=== PATIENT | female | born 1955 | race Caucasian/White ===

== ENCOUNTER 2018-06-22 17:17 | Emergency (ER) | payer OTHER ==
[~2018-06-22] VITALS: Ht 167.6 cm; Wt 113.9 kg
[~2018-06-22 17:17] MED LIST: ARMOUR THYROID60 MG PO; JANUVIA100 MG PO; LOSARTAN POTASS25 MG PO; METFORMIN HCL500 MG PO; METOPROLOL TART50 MG PO
--- OUTSIDE RECORDS SUMMARY | 2018-06-22 17:20 | XMS REPORT | Continuity of Care Document ---
Author Author [facility] Organization Interface Address Unknown Phone Unavailable Problems Problem Status Onset Date Classification Date Reported Comments Source R92.8 - OTH ABN AND INCONCLUSIVE FINDI Active 12/20/2015 [facility] Medications Medication Details Route Status Patient Instructions Ordering Provider Order Date Source Allergies, Adverse Reactions, Alerts Substance Category Reaction Severity Reaction type Status Date Reported Comments Source Immunizations Immunization Date Given Site Status Last Updated Comments Source Results Order Name Results Value Reference Range Date Interpretation Comments Source Breast w/wo contrast bilat MRI Breast w/wo contrast bilat MRI - BREAST W/WO CONTRAST BILAT MRI BREAST MRI OF BOTH BREASTS : 01/02/2016 CLINICAL: Z80.3 Family History Of Malignant Neoplasm Of Breast HISTORY: 60 yo known BRCA negative female with history of LEFT breast wire- 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 The patient has the following family history of breast cancer: mother at 42, (g)grandmother, two great aunts, and maternal aunt at 60. She reports fluctuating left breast pain x two months. Comparison is made to exams dated: 12/22/2015 ultrasound, 12/22/2015 mammogram, 12/28/2014 localization, 12/07/2014 mammogram, 12/07/2014 stereotactic biopsy and 11/14/2014 mammogram - [facility]. INFORMED CONSENT: The procedure was explained to the patient including possible risks, benefits, complications and alternatives. The patient understood and desired to proceed. She took 10 mg of Valium, p.o., at 1235 hours, prior to the start of the breast MRI. 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 PRE GADOLINIUM CONTRAST INJECTION LABORATORY TESTING: Per ACR/ACS protocol for patients over the age of 60 prior to the injection of gadolinium contrast, the patient's creatinine and GFR were assessed with the I- STAT DEVICE. Creatinine measured 0.6 mg/dL and GFR 101. The patient's values fall within normal limits for age and weight. These values are considered within tolerance and safe for injection. TECHNIQUE: High resolution 1.4 mm RODEO plus, axial acquisitions were obtained of both breasts using an uberall 1.5 Suzanne dedicated breast MRI preceding and following the administration of cc's of Omniscan, subtraction, 2D and 3D maximum intensity projections (MIP), multiplanar reconstructions (MPR) and OTILIA Time Activity curves were performed on the Physician's Review Station with [employer] MRI FINDINGS: RIGHT BREAST FINDINGS: I do not identify any definite evidence of spiculated or linear beaded enhancement to suggest malignancy. The nipple-areolar complex appears to be unremarkable. The visualized lymph nodes appear architecturally preserved. The chest wall structures appear normal. No internal mammary adenopathy. LEFT BREAST FINDINGS: I do not identify any definite evidence of spiculated or linear beaded enhancement to suggest malignancy. The nipple-areolar complex appears to be unremarkable. The visualized lymph nodes appear architecturally preserved. The chest wall structures appear normal. No internal mammary adenopathy. IMPRESSION: BENIGN 1. THERE IS NO DEFINITE MRI EVIDENCE TO SUGGEST MALIGNANCY INVOLVING EITHER BREAST. 2. NO SUSPICIOUS ADENOPATHY. RECOMMENDATION: 1. PROVIDING HER CLINICAL AND SELF-EXAMINATIONS REMAIN STABLE AND THERE IS NO INTERVAL WORSENING OF HER SYMPTOMALOGY, A BILATERAL MAMMOGRAM AND BILATERAL ULTRASOUND IN November, IS RECOMMENDED. I telephonically discussed the findings and recommendations with the patient on 01/03/16. We also discussed conservative measures for management of breast pain such as caffeine abstinence, reducing salt intake, etc. I emphasized to her to return for repeat imaging if her pain should persist or worsen. Shayla Samson M.D. sg/:01/03/2016 17:10:57 Tool Worker: Re [facility] This exam was dictated and interpreted by [id number] for [facility]. letter sent: Bilateral Benign MRI BI-RADS: 2 Benign 01/02/2016 - - Read by: Shayla Samson MD Dictated Date/time: 01/03/16 17:10 Electronically Signed by: Shayla Samson MD 01/03/16 17:10 FINAL REPORT [facility] Breast Complete Janak US Breast Complete Janak US - BREAST COMPLETE JANAK US ULTRASOUND OF BOTH BREASTS: 12/22/2015 CLINICAL: HISTORY: 60 yo known BRCA negative female with increased risk. She reports history of off and on LEFT breast pain x 2 months. She underwent wire- localized LEFT excisional biopsy of ADH and papilloma 12/28/14. The patient has the following family history of breast cancer: mother at 42, great grandmother, two great aunts, and maternal aunt at 60. No HRT. Comparison is made to exams dated: 12/28/2014 localization, 12/07/2014 mammogram, 12/07/2014 stereotactic biopsy, 11/14/2014 mammogram, 11/14/2014 ultrasound and 07/23/2011 mammogram - [facility]. Real-time ultrasound of both breasts was performed. RIGHT BREAST FINDINGS: The entire right breast was evaluated including all four quadrants, axillary tail, subareolar region and axilla. No abnormalities that would be suspicious for malignancy were identified. A stable subcentimeter cyst was identified at 3:30. No axillary adenopathy. LEFT BREAST AND AXILLA FINDINGS: The entire left breast was evaluated including all four quadrants, axillary tail, subareolar region and axilla. No abnormalities that would be suspicious for malignancy were identified. No axillary adenopathy. IMPRESSION: INCOMPLETE: NEEDS ADDITIONAL IMAGING EVALUATION - FOLLOW-UP RECOMMENDED 1. THERE IS NO DEFINITE RADIOGRAPHIC OR SONOGRAPHIC EVIDENCE TO SUGGEST MALIGNANCY IN EITHER BREAST AND NO SIGNIFICANT CHANGE. RECOMMENDATION: 1. PATIENT WOULD LIKE TO PURSUE FURTHER IMAGING EVALUATION OF HER LEFT BREAST PAIN WITH AN MRI DUE TO HER INCREASED RISK. SHE HAS BEEN TENTATIVELY SCHEDULED FOR 01/02/16 PENDING PHYSICIAN ORDERS AND INSURANCE AUTHORIZATION. I personally reviewed the imaging findings and recommendations with the patient. Shayla Samson M.D. sg/:12/25/2015 10:13:54 Tool Worker: Analy Bills, [facility] This exam was dictated and interpreted by [id number] for [facility]. Ultrasound BI-RADS: 0 Indeterminate 12/22/2015 - - Read by: Shayla Samson MD Dictated Date/time: 12/25/15 10:13 Electronically Signed by: Shayla Samson MD 12/25/15 10:13 FINAL REPORT [facility] Digital Mammo DX Janak MA Digital Mammo DX Janak MA - DIGITAL MAMMO DX JANAK MA BILATERAL DIGITAL DIAGNOSTIC MAMMOGRAM WITH CAD: 12/22/2015 CLINICAL: HISTORY: 60 yo known BRCA negative female with increased risk. She reports history of off and on LEFT breast pain x 2 months. She underwent wire- localized LEFT excisional biopsy of ADH and papilloma 12/28/14. The patient has the following family history of breast cancer: mother at 42, great grandmother, two great aunts, and maternal aunt at 60. No HRT. Current study was evaluated with a Computer Aided Detection (CAD) system. Comparison is made to exams dated: 12/28/2014 localization, 12/07/2014 mammogram, 12/07/2014 stereotactic biopsy, 11/14/2014 mammogram, 11/14/2014 ultrasound and 07/23/2011 mammogram - [facility]. There are scattered fibroglandular densities in both breasts. Mild left post surgical changes. Stable left low-density nodules. No significant masses, calcifications, or other findings are seen in either breast. IMPRESSION: BENIGN There is no mammographic evidence of malignancy. PLEASE SEE SAME DAY ULTRASOUND REPORT. Shayla Samson M.D. sg/:12/25/2015 10:13:54 Tool Worker: Analy Bills, [facility] This exam was dictated and interpreted by [id number] for [facility]. Mammogram BI-RADS: 2 Benign 12/22/2015 - - Read by: Shayla Samson MD Dictated Date/time: 12/25/15 10:13 Electronically Signed by: Shayla Samson MD 12/25/15 10:13 FINAL REPORT [facility] Vital Signs Vital Sign Value Date Comments Source Encounters Location Location Details Encounter Type Encounter Number Reason For Visit Attending Provider ADM Date DC Date Status Source [facility] [id number] Lyudmila Files 12/22/2015 12/23/2015 [facility] [id number] Lyudmila Files 01/02/2016 01/03/2016 [facility] Procedure Code Date Perfomer Comments Source
--- OUTSIDE RECORDS SUMMARY | 2018-06-22 17:20 | XMS REPORT | Summary of Care ---
Author Author [facility] Address Unknown Phone Unavailable Encounter HQ Billntr_roya(FIN) [id number] Date(s): 12/22/15 - 12/22/15 [facility] [address] [place] [phone] [place] [phone] Discharge Disposition: Home or Self Care Attending Physician: Lyudmila Cm MD Vital Signs No data available for this section Problem List No data available for this section Allergies, Adverse Reactions, Alerts No data available for this section Medications No data available for this section Results No data available for this section Immunizations No data available for this section Procedures No data available for this section Social History No data available for this section Assessment and Plan No data available for this section
--- OUTSIDE RECORDS SUMMARY | 2018-06-22 17:20 | XMS REPORT ---
Author Author [facility] Address Unknown Phone Unavailable Care Team Providers Care Systems Operator Name Role Phone PEMA WALLACE Unavailable Unavailable Fam BUCKLEY Unavailable Unavailable Problems This patient has no known problems. Allergies, Adverse Reactions, Alerts This patient has no known allergies or adverse reactions. Medications This patient has no known medications. Results Test Description Test Time Test Comments Text Results Atomic Results Result Comments UPPER GI W/AIR CONTR [place] [address] Patient Name: ABEL MORENO MR #: [id number] : 1955 Age/Sex: 62/F Req #: [id number] [facility] Physician: Ordered by: MADISON REYNA, PEMA Pereyra MD Report #: [id number] Location: DX Room/Bed: Procedure: [id number] DX/UPPER GI W/AIR CONTR Exam Date: 05/07/17 Exam Time: 0715 REPORT STATUS: Signed PROCEDURE: X-RAY UPPER GI SERIES WITH AIR CONTRAST TECHNIQUE: Multiple fluoroscopic spot images were acquired of the esophagus, stomach, and duodenum after the administration of effervescent crystals and thin and thick barium. Images were obtained in the upright and supine positions from multiple obliquities. COMPARISON: None. INDICATIONS: Chest pain. FINDINGS: ESOPHAGUS: Motility: Within normal limits. Mucosa: Unremarkable. Distensibility: Normal. GASTROESOPHAGEAL JUNCTION: No evidence of hiatal hernia. GASTROESOPHAGEAL REFLUX: None observed. STOMACH: Normally distensible and demonstrates normal contours and mucosal pattern. DUODENUM: Bulb and sweep are normal. Duodenal- jejunal junction is in the normal expected position. Two separate diverticuli are present in the duodenum. IMPRESSION: No acute radiographic abnormality. Duodenal diverticulum. Dictated by: Emilia Saravia M.D. on 05/07/2017 at 8:38 Electronically approved by: Emilia Saravia M.D. on 05/07/2017 at 8:38 Dictated By: EMILIA SARAVIA MD 7 Transcribed By: KACIE on 05/07/17837 COPY TO: PEMA WALLACE Stress Test - Treadmill ONLY [place] [address] Patient Name : ABEL MORENO MR #: [id number] : 1955 Age/Sex: 62/F Adm Physician : BERNARD BUCKLEY MD Admit Date : 04/27/17 Location : [facility] Room/Bed : [place] [address] REPORT: Cardiology Report DATE OF STUDY: April 29, 2017 LEXISCAN NUCLEAR STRESS TEST INDICATIONS: Angina. The patient was stressed using a 1-minute intravenous infusion of Lexiscan. Rest and stress Myoview imaging was obtained. Nuclear imaging at both rest and stress is normal. Normal contractility of the left ventricle is noted. CONCLUSIONS: 1. Normal Lexiscan nuclear stress without evidence of ischemia or infarction. 2. Left ventricular ejection fraction is 67%. Job#: [id number] EV Signature Date Dictated By: RUBIO HEWITT MD Transcribed By: LOLLY on 04/29/17 <Electronically signed by RUBIO HEWITT MD><<Signature on File>>04/30/17 1401 COPY TO: CHEST 2 VIEWS [place] [address] Patient Name: ABEL MORENO MR #: [id number] : 1955 Age/Sex: 62/F Req #: [id number] Adm Physician: Ordered by: YADIRA TILLEY MD Report #: [id number] Location: ER Room/Bed: Procedure: [id number] DX/CHEST 2 VIEWS Exam Date: 04/27/17 Exam Time: 1548 REPORT STATUS: Signed EXAMINATION: PA and lateral views of the chest. COMPARISON: None CLINICAL HISTORY: Chest pain DISCUSSION: Lines/tubes: None. Lungs: The lungs are well inflated and clear. There is no evidence of pneumonia or pulmonary edema. Pleura: There is no pleural effusion or pneumothorax. Heart and mediastinum: The cardiomediastinal silhouette is normal. Bones and soft tissues: No acute bony abnormalities. IMPRESSION: No acute cardiopulmonary abnormalities. Signed by: Dr. Jerrica Collins M.D. on 04/27/2017 4:02 PM Dictated By: JERRICA COLLINS MD 1602 Transcribed By: JUSTIN on 04/27/17 1602 COPY TO: YADIRA TILLEY MD
--- OUTSIDE RECORDS SUMMARY | 2018-06-22 17:20 | XMS REPORT | Summary of Care ---
Author Author [facility] - [facility] Address Unknown Phone Unavailable Encounter HQ Encntr_roya(FIN) [id number] Date(s): 01/02/16 - 01/02/16 [facility] [address] [place] [phone] [place] [phone] Discharge Disposition: Home or Self Care Attending [...]
--- NOTE | 2018-06-22 18:29 | Diagnostic Imaging Report ---
RIGHT HAND - 3 Images RIGHT WRIST - 3 Images HISTORY: Fall, injury COMPARISON: None available. FINDINGS: Bones: Diffusely decreased mineralization of the osseous structures limits bone detail. Two osseous darryn at the base of the first metacarpal bone. No acute displaced fracture. Joints: Polyarticular arthropathy, most notably severe of the distal interphalangeal joints with central erosions. Moderate degenerative changes of the triscaphe joint. The first carpometacarpal joint is fused. Soft tissues: The soft tissues appear unremarkable. IMPRESSION: 1. No acute displaced fracture. 2. Diffuse osseous demineralization. If pain persists, recommend repeat radiographs in 10-14 days. 3. Erosive osteoarthropathy. Signed by: Dr. Solo Landeros D.O., M.M.M. on 06/22/2018 6:26 PM
--- NOTE | 2018-06-22 18:55 | NUR ---
REPORT TO VALENTINA VASQUEZ
== END 2018-06-22 19:20 | disposition home or self-care (01) ==
LOC: FSED 17:17
DX: S60.211A Contusion of right wrist, initial encounter (principal); S60.221A Contusion of right hand, initial encounter; W01.0XXA Fall on same level from slipping, tripping and stumbling without subsequent striking against object, initial encounter; Y92.008 Other place in unspecified non-institutional (private) residence as the place of occurrence of the external cause
CPT/HCPCS: 99283

== ENCOUNTER → 2020-10-20 | Day surgery (SDC) | payer BC ==
[2020-10-17 13:18] LABS: BASOPHILS # (AUTO) 0.1 (0.0-0.1); BASOPHILS % 0.8 % (0.0-1.0); EOSINOPHILS # (AUTO) 0.1 (0.0-0.4); HEMATOCRIT 39.2 % (34.2-44.1); LYMPHOCYTES % 15.7 % (18.0-39.1); MEAN CORPUSCULAR HEMOGLOBIN 28.8 pg (28-32); MEAN CORPUSCULAR HGB CONC 33.2 g/dL (31-35); MEAN CORPUSCULAR VOLUME 86.9 fL (81-99); MONOCYTES # (AUTO) 0.5 (0.2-0.8); MONOCYTES % 7.2 % (4.4-11.3); NEUTROPHILS # (AUTO) 4.8 (2.1-6.9); NEUTROPHILS % 73.8 % (38.7-80.0); PLATELET COUNT 252 x10e3/uL (140-360); RED BLOOD COUNT 4.51 x10e6/uL (3.6-5.1); RED CELL DISTRIBUTION WIDTH 13.8 % (11.7-14.4)
[2020-10-17 13:38] LABS: ANION GAP 14.4 mmol/L (8-16); BLOOD UREA NITROGEN 17 mg/dL (7-26); BUN/CREATININE RATIO 23 (6-25); CALCIUM 9.7 mg/dL (8.4-10.2); CARBON DIOXIDE 25 mmol/L (22-29); CHLORIDE 105 mmol/L (98-107); CREATININE, SERUM 0.74 mg/dL (0.57-1.11); EST GLOMERULAR FILTRATION RATE > 60 ML/MIN (60-); GLUCOSE 130 mg/dL (74-118); POTASSIUM 4.4 mmol/L (3.5-5.1); SODIUM 140 mmol/L (136-145)
[~2020-10-20] MED LIST changes: +BENICAR20 MG PO; +BUPIVACAINE 0.25% 30ML SDV ONE; +DEXAMETHASONE SOD PHOS INJ 4 MG/ML VIAL ONE; +FENTANYL CITRATE/PF 100MCG/2 ML INJ ONE; +HYDRALAZINE HC100 MG PO; +HYDROCODONE/APAP 7.5MG-325MG 1 EA TAB ONE; +HYDROGEN PEROXIDE 120 ML BTL ONE; +LEXAPRO20 MG PO; +LIDOCAINE HCL 2% LOCAL INJ 5 ML SDV VIAL INJ ONE; +METOPROLOL SUCC50 MG PO; +MIDAZOLAM HCL 2 MG/2 ML VIAL ONE; +ONDANSETRON HCL INJ 2MG/ML 2ML 2 MG/ML VIAL ONE; +OZEMPIC0.25 MG/0. SC; +POVIDONE IODINE 0.05% 0.05 % ML PO ONE; +PROPOFOL IV EMULSION 10 MG/ML 20 ML VIAL ONE; +SEVOFLURANE INHAL SOLN 250 ML PEN BTL ONE
[2020-10-20 12:00] VITALS: BP 111/68
== END | disposition home or self-care (01) ==
LOC: OR 07:00
PROVIDERS: ATTEND Surgery
DX: L72.0 Epidermal cyst (principal); E11.9 Type 2 diabetes mellitus without complications; I10 Essential (primary) hypertension; E66.9 Obesity, unspecified; E03.9 Hypothyroidism, unspecified; M12.9 Arthropathy, unspecified; Z88.0 Allergy status to penicillin; Z88.2 Allergy status to sulfonamides; Z91.041 Radiographic dye allergy status; Z01.810 Encounter for preprocedural cardiovascular examination; Z01.812 Encounter for preprocedural laboratory examination; Z20.822 Contact with and (suspected) exposure to COVID-19; Z79.84 Long term (current) use of oral hypoglycemic drugs; Z68.35 Body mass index [BMI] 35.0-35.9, adult; Z80.3 Family history of malignant neoplasm of breast
CPT/HCPCS: 19120; 36415; 80048; 85025; 87071; 87205; 88304; 93005; J1100; J2001; J2250; J2405; J2704; J3010; U0002

== ENCOUNTER 2022-08-26 22:24 | Inpatient (IN) | payer BC, MEDICARE ==
[~2022-08-26] VITALS: Ht 165.1 cm; Wt 109.8 kg
[~2022-08-26 22:24] MED LIST changes: -BUPIVACAINE 0.25% 30ML SDV ONE; -DEXAMETHASONE SOD PHOS INJ 4 MG/ML VIAL ONE; -FENTANYL CITRATE/PF 100MCG/2 ML INJ ONE; -HYDROCODONE/APAP 7.5MG-325MG 1 EA TAB ONE; -HYDROGEN PEROXIDE 120 ML BTL ONE; -LIDOCAINE HCL 2% LOCAL INJ 5 ML SDV VIAL INJ ONE; -MIDAZOLAM HCL 2 MG/2 ML VIAL ONE; -ONDANSETRON HCL INJ 2MG/ML 2ML 2 MG/ML VIAL ONE; -POVIDONE IODINE 0.05% 0.05 % ML PO ONE; -PROPOFOL IV EMULSION 10 MG/ML 20 ML VIAL ONE; -SEVOFLURANE INHAL SOLN 250 ML PEN BTL ONE
[2022-08-26 23:17] LABS: BASOPHILS % 0.6 % (0.0-1.0); EOSINOPHILS # (AUTO) 0.1 (0.0-0.4); EOSINOPHILS % 1.2 % (0.0-6.0); HEMATOCRIT 39.7 % (34.2-44.1); LYMPHOCYTES # (AUTO) 0.6 (1.0-3.2); LYMPHOCYTES % 12.3 % (18.0-39.1); MEAN CORPUSCULAR HEMOGLOBIN 29.4 pg (28-32); MEAN CORPUSCULAR HGB CONC 32.7 g/dL (31-35); MEAN CORPUSCULAR VOLUME 89.8 fL (81-99); MONOCYTES # (AUTO) 0.4 (0.2-0.8); MONOCYTES % 7.3 % (4.4-11.3); NEUTROPHILS # (AUTO) 3.9 (2.1-6.9); PLATELET COUNT 217 x10e3/uL (140-360); RED BLOOD COUNT 4.42 x10e6/uL (3.6-5.1); RED CELL DISTRIBUTION WIDTH 13.6 % (11.7-14.4)
[2022-08-26 23:21] LABS: AMPHETAMINES SCREEN,URINE NEGATIVE (NEGATIVE); BENZODIAZEPINES SCREEN,URINE NEGATIVE (NEGATIVE); PHENCYCLIDINE SCREEN,URINE NEGATIVE (NEGATIVE)
[2022-08-26 23:42] LABS: ALANINE AMINOTRANSFERASE 38 IU/L (0-55); ALBUMIN 3.7 g/dL (3.5-5.0); ALBUMIN/GLOBULIN RATIO 1.1 (0.8-2.0); ALKALINE PHOSPHATASE 67 IU/L (40-150); BLOOD UREA NITROGEN 30 mg/dL (7-26); BUN/CREATININE RATIO 43 (6-25); CALCIUM 9.6 mg/dL (8.4-10.2); CARBON DIOXIDE 19 mmol/L (22-29); CHLORIDE 106 mmol/L (98-107); CREATINE KINASE 50 IU/L (29-168); GLUCOSE 162 mg/dL (74-118); SODIUM 137 mmol/L (136-145)
[2022-08-27] MEDS ORDERED: ONDANSETRON HCL INJ 2MG/ML 2ML 2 MG/ML VIAL IV PRN (00:15)
[2022-08-27] MEDS ORDERED: Morphine 4mg INJECTION 4 MG/ML INJ IV PRN (06:00)
[2022-08-27 07:05] LABS: CREATINE KINASE 49 IU/L (29-168)
[2022-08-27 08:21] VITALS: BP 128/72
[2022-08-27 08:30] VITALS: BP 128/72
[2022-08-27] MEDS: HYDRALAZINE HCL 100 MG TABLET PO SCH ×2 (09:00→16:47)
[2022-08-27] MEDS: ESCITALOPRAM OXALATE 10 MG TAB PO SCH (09:00)
[2022-08-27] MEDS: METOPROLOL SUCCINATE 50 MG TAB XL PO SCH (09:00)
[2022-08-27] MEDS: THYROID 60 MG TAB PO SCH (09:00)
[2022-08-27] MEDS ORDERED: DEXTROSE 50% SYRINGE 50 ML IV PRN (11:00)
[2022-08-27] MEDS: INSULIN REGULAR, HUMAN 100 UNIT/1 ML SQ SCH ×3 (11:30→21:00)
[2022-08-27 12:07] VITALS: BP 114/65
[2022-08-27] MEDS ORDERED: REGADENOSON 0.4 MG/5 ML SYR IV ONE (12:56)
[2022-08-27] MEDS: ACETAMINOPHEN 325 MG TAB PO PRN (16:18)
[2022-08-27 16:42] VITALS: BP 119/71
[2022-08-27 16:48] LABS: CREATINE KINASE 63 IU/L (29-168)
[2022-08-27 20:00] VITALS: BP 100/51
[2022-08-27] MEDS ORDERED: ATORVASTATIN 20 MG TAB PO SCH (21:00)
[2022-08-27] MEDS ORDERED: NEURONTIN300 MG PO (21:29)
[2022-08-28 00:34] VITALS: BP 105/60
[2022-08-28 01:14] VITALS: BP 105/60
[2022-08-28 05:57] LABS: BASOPHILS % 0.7 % (0.0-1.0); EOSINOPHILS # (AUTO) 0.1 (0.0-0.4); EOSINOPHILS % 1.8 % (0.0-6.0); HEMATOCRIT 39.7 % (34.2-44.1); HEMOGLOBIN 12.8 g/dL (12.0-16.0); LYMPHOCYTES % 18.2 % (18.0-39.1); MEAN CORPUSCULAR HEMOGLOBIN 29.5 pg (28-32); MEAN CORPUSCULAR HGB CONC 32.2 g/dL (31-35); MEAN CORPUSCULAR VOLUME 91.5 fL (81-99); MONOCYTES # (AUTO) 0.6 (0.2-0.8); MONOCYTES % 11.7 % (4.4-11.3); NEUTROPHILS # (AUTO) 3.7 (2.1-6.9); NEUTROPHILS % 67.2 % (38.7-80.0); PLATELET COUNT 234 x10e3/uL (140-360); RED BLOOD COUNT 4.34 x10e6/uL (3.6-5.1); RED CELL DISTRIBUTION WIDTH 13.8 % (11.7-14.4)
[2022-08-28 06:31] LABS: ALBUMIN 3.7 g/dL (3.5-5.0); ALBUMIN/GLOBULIN RATIO 1.2 (0.8-2.0); CALCIUM 9.1 mg/dL (8.4-10.2); CREATININE, SERUM 0.7 mg/dL (0.57-1.11)
[2022-08-28] MEDS: ACETAMINOPHEN 325 MG TAB PO PRN (06:57)
[2022-08-28] MEDS: INSULIN REGULAR, HUMAN 100 UNIT/1 ML SQ SCH ×2 (07:30→11:30)
[2022-08-28 08:40] VITALS: BP 121/68
[2022-08-28] MEDS: METOPROLOL SUCCINATE 50 MG TAB XL PO SCH (08:57)
[2022-08-28] MEDS: HYDRALAZINE HCL 100 MG TABLET PO SCH (08:57)
[2022-08-28] MEDS: THYROID 60 MG TAB PO SCH (08:57)
[2022-08-28] MEDS: ESCITALOPRAM OXALATE 10 MG TAB PO SCH (08:57)
[2022-08-28] MEDS ORDERED: ONDANSETRON HCL 4 MG ORAL DISINTEGRATING TAB PO PRN (12:15)
[2022-08-28 12:28] VITALS: BP 95/59
== END 2022-08-28 13:01 | disposition home or self-care (01) | DRG 313 ==
LOC: ER 22:31 → ERHOLD 08-27 00:14 → MED/SURG3 08-27 07:00 → OBSVTOIN 08-28 09:26
PROVIDERS: ADMIT Internal Medicine; ATTEND Internal Medicine
DX: R07.89 Other chest pain (principal); I10 Essential (primary) hypertension; E11.9 Type 2 diabetes mellitus without complications; Z79.85 Long-term (current) use of injectable non-insulin antidiabetic drugs; I34.1 Nonrheumatic mitral (valve) prolapse; H81.09 Meniere's disease, unspecified ear; E78.00 Pure hypercholesterolemia, unspecified; E03.9 Hypothyroidism, unspecified; Z90.49 Acquired absence of other specified parts of digestive tract; Z96.653 Presence of artificial knee joint, bilateral; Z88.0 Allergy status to penicillin; Z88.2 Allergy status to sulfonamides
CPT/HCPCS: 36415; 71045; 78452; 80053; 80307; 82550; 82553; 82948; 83690; 83880; 84484; 85025; 85379; 93005; 93017; 93306; 99284; A9502; G0378; J2405